=== PATIENT | male | born 1955 | race Caucasian/White ===

== ENCOUNTER → 2019-05-18 13:34 | Outpatient (BNVA) | payer MEDICARE, SELFPAY | PROVIDERS: Referring Provider Nurse Practitioner Family; Visit Provider Internal Medicine Rheumatology | DX: L40.50 Arthropathic psoriasis, unspecified (principal); Z79.899 Other long term (current) drug therapy; Z11.59 Encounter for screening for other viral diseases; M19.90 Unspecified osteoarthritis, unspecified site; R76.8 Other specified abnormal immunological findings in serum; L40.8 Other psoriasis | CPT/HCPCS: 36415; 80076; 82306; 82565; 84550; 85025; 85651; 86140; 99204 ==

== ENCOUNTER → 2019-05-18 15:01 | Outpatient (BNVA) | payer MEDICARE, SELFPAY | PROVIDERS: PCP Nurse Practitioner Family; Referring Provider Nurse Practitioner Family; Visit Provider Internal Medicine Rheumatology | DX: L40.50 Arthropathic psoriasis, unspecified (principal); M19.90 Unspecified osteoarthritis, unspecified site | CPT/HCPCS: 85025 ==

== ENCOUNTER → 2019-06-08 13:13 | Outpatient (BNVA) | payer MEDICARE, SELFPAY | PROVIDERS: PCP Nurse Practitioner Family; Visit Provider Internal Medicine Rheumatology | DX: L40.8 Other psoriasis (principal); M19.90 Unspecified osteoarthritis, unspecified site; Z79.899 Other long term (current) drug therapy; L40.50 Arthropathic psoriasis, unspecified; M19.011 Primary osteoarthritis, right shoulder; M47.896 Other spondylosis, lumbar region; M16.0 Bilateral primary osteoarthritis of hip; M85.841 Other specified disorders of bone density and structure, right hand; M85.842 Other specified disorders of bone density and structure, left hand; M19.072 Primary osteoarthritis, left ankle and foot; M19.071 Primary osteoarthritis, right ankle and foot; Z98.1 Arthrodesis status | CPT/HCPCS: 36415; 72040; 72100; 72170; 73020; 73130; 73562; 73630; 80076; 99214 ==

== ENCOUNTER 2019-06-08 14:06 | Outpatient (CLI) | payer MEDICARE, SELFPAY ==
--- NOTE | 2019-06-08 14:38 | XR_ITS ---
WS: [id number] FOOT RIGHT TECHNIQUE: 3 views of the right foot CLINICAL INFORMATION: inflammatory arthritis COMPARISON: None. FINDINGS: Osteopenia. Hammertoe deformities. Chronic small erosions involving the metatarsal heads. Hallux valg us. Degenerative narrowing involving the first PIP joint. Mild IP joint narrowing involving the PIP a nd DIP joints. Degenerative arthritis involving the tarsal bones. Tiny plantar calcaneal spur. XR/XR foot RT min 3V* [id number] IMPRESSION: 1. Small erosions involving the metatarsal heads. 2. Hallux valgus. 3. Moderate degenerative arthritis involving the midfoot tarsal bones at the T MT joint.
--- NOTE | 2019-06-08 14:38 | XR_ITS ---
WS: [id number] LUMBAR SPINE TECHNIQUE: 3 views of the lumbar spine CLINICAL INFORMATION: inflammatory arthritis COMPARISON: None. FINDINGS: Osteopenia. Mild lumbar curve. 5 nonrib-bearing lumbar vertebral bodies. Mild disc space narrowing L2 -3, L4-5, and L5-S1. Facet arthropathy lower lumbar spine. Anterior hypertrophic changes lumbar spine . IMPRESSION: 1. Mild lumbar curve. 2. Mild disc space narrowing L2-3, L4-5, and L5-S1. 3. Moderate facet arthropathy lower lumbar spine.
--- NOTE | 2019-06-08 14:38 | XR_ITS ---
WS: [id number] KNEE RIGHT TECHNIQUE: 3 views of the right knee CLINICAL INFORMATION: inflammatory arthritis COMPARISON: None. FINDINGS: Normal anatomic alignment. Mild degenerative narrowing involving the medial lateral joint compartment s. Hypertrophic changes along the joint line. Advanced narrowing at the patellofemoral articulation. Mild soft tissue edema. Osteopenia. XR/XR knee RT 3V* [id number] IMPRESSION: Mild to moderate tricompartmental arthritis
--- NOTE | 2019-06-08 14:38 | XR_ITS ---
WS: [id number] HAND RIGHT TECHNIQUE: 3 views of the right hand CLINICAL INFORMATION: inflammatory arthritis COMPARISON: None. FINDINGS: Small erosions with hypertrophic spurring involving the second and third metacarpal heads. Mild IP lance int narrowing with tiny periarticular erosions or prominent involving the PIP joints. Narrowing of th e radiocarpal joint. Degenerative arthritis at the first CMC. XR/XR hand RT min 3V* [id number] IMPRESSION: 1. Small erosions with hypertrophic spurring involving the second third metaca rpal heads. 2. Tiny periarticular erosions PIP joints
--- NOTE | 2019-06-08 14:38 | XR_ITS ---
WS: [id number] SHOULDER RIGHT TECHNIQUE: 3 views of the right shoulder CLINICAL INFORMATION: inflammatory arthritis COMPARISON: None. FINDINGS: Mild degenerative arthritis AC joint. Undersurface acromial spurring. Mild rotator cuff arthropathy. Distal clavicle is normal. Mild degenerative narrowing glenohumeral joint. Normal visualized right randy ng. XR/XR shoulder RT 1V [id number] IMPRESSION: Mild degenerative arthritis right glenohumeral joint and AC joint with undersur face acromial spurring
--- NOTE | 2019-06-08 14:38 | XR_ITS ---
WS: [id number] PELVIS TECHNIQUE: 1 view(s) of the pelvis CLINICAL INFORMATION: inflammatory arthritis COMPARISON: None. FINDINGS: Mild degenerative arthritis lower lumbar spine. Mild degenerative narrowing both hips. Pelvic phlebol iths. Normal acetabulum.Inferior and superior pubic rami are normal. Normal iliopectineal line. Sacrum is n ormal in appearance. XR/XR pelvis 1-2V* [id number] IMPRESSION: Mild degenerative arthritis lower lumbar spine and both hips. No erosive change s.
--- NOTE | 2019-06-08 14:38 | XR_ITS ---
WS: [id number] FOOT LEFT TECHNIQUE: 3 views of the left foot CLINICAL INFORMATION: inflammatory arthritis COMPARISON: None. FINDINGS: Hallux valgus. IP joint narrowing first through fifth digits. A few tiny erosions involving the metat arsal heads. IP joint narrowing involving the PIP and DIP joints. Osteopenia. Degenerative arthritis TMT joints with hypertrophic spurring. XR/XR foot LT min 3V* [id number] IMPRESSION: 1. Hallux valgus. 2. A few tiny erosions involving the metatarsal heads. 3. Degenerative arthritis more prominent at the TMT joints with hypertrophic s purring
--- NOTE | 2019-06-08 14:38 | XR_ITS ---
WS: [id number] CERVICAL SPINE TECHNIQUE: 3 views of the cervical spine CLINICAL INFORMATION: inflammatory arthritis COMPARISON: None. FINDINGS: Straightening of the normal cervical lordosis. Mild spondylitic changes. Normal C1-2 articulation. Pr ior anterior fusion C5-C6 appears solid. Normal prevertebral soft tissues. Mild facet arthropathy mid cervical spine. XR/XR cervical spine 3V* [id number] IMPRESSION: Prior solid-appearing anterior fusion C5-6.
--- NOTE | 2019-06-08 14:38 | XR_ITS ---
WS: [id number] HAND LEFT TECHNIQUE: 3 views of the left hand CLINICAL INFORMATION: inflammatory arthritis COMPARISON: None. FINDINGS: Normal metacarpals. Narrowing of the radiocarpal joint. Degenerative arthritis at the distal radial u lnar joint. Ulna positive variance. Degenerative arthritis at the first CMC and STT. Mild IP joint narrowing. Tiny periarticular erosions at the IP joints. XR/XR hand LT min 3V* [id number] IMPRESSION: 1. Suggestion of tiny periarticular erosions of the IP joints. 2. Narrowing of the radiocarpal joint with ulna positive variance
== END 2019-06-08 14:07 | disposition home or self-care (01) ==
PROVIDERS: PCP Nurse Practitioner Family; Visit Provider Internal Medicine Rheumatology
DX: L40.50 Arthropathic psoriasis, unspecified (principal); M19.011 Primary osteoarthritis, right shoulder; M47.896 Other spondylosis, lumbar region; M16.0 Bilateral primary osteoarthritis of hip; M85.841 Other specified disorders of bone density and structure, right hand; M85.842 Other specified disorders of bone density and structure, left hand; M19.072 Primary osteoarthritis, left ankle and foot; M19.071 Primary osteoarthritis, right ankle and foot; Z98.1 Arthrodesis status
CPT/HCPCS: 72040; 72100; 72170; 73020; 73130; 73562; 73630; 80076

== ENCOUNTER → 2019-09-03 13:07 | Outpatient (BNVA) | payer MEDICARE, SELFPAY | PROVIDERS: PCP Nurse Practitioner Family; Visit Provider Internal Medicine Rheumatology | DX: Z79.899 Other long term (current) drug therapy (principal) | CPT/HCPCS: 36415; 80076; 82565; 85025; 85651; 86140; 86812 ==

== ENCOUNTER → 2019-09-16 11:43 | Outpatient (BNVA) | payer MEDICARE, SELFPAY | PROVIDERS: PCP Nurse Practitioner Family; Visit Provider Internal Medicine Rheumatology | DX: M05.79 Rheumatoid arthritis with rheumatoid factor of multiple sites without organ or systems involvement (principal); Z11.59 Encounter for screening for other viral diseases; Z79.899 Other long term (current) drug therapy; Z11.1 Encounter for screening for respiratory tuberculosis; M19.90 Unspecified osteoarthritis, unspecified site; L40.9 Psoriasis, unspecified; R76.8 Other specified abnormal immunological findings in serum; Z72.89 Other problems related to lifestyle; M10.9 Gout, unspecified; R74.8 Abnormal levels of other serum enzymes | CPT/HCPCS: 36415; 86480; 86704; 86803; 87340; 99214 ==

== ENCOUNTER → 2019-11-08 10:28 | Outpatient (BNVA) | payer MEDICARE, SELFPAY | PROVIDERS: PCP Nurse Practitioner Family; Referring Provider Nurse Practitioner Family; Visit Provider Anesthesiology Pain Medicine | DX: M48.07 Spinal stenosis, lumbosacral region (principal); M47.816 Spondylosis without myelopathy or radiculopathy, lumbar region; M54.9 Dorsalgia, unspecified; M54.2 Cervicalgia; Z79.891 Long term (current) use of opiate analgesic | CPT/HCPCS: 99204 ==

== ENCOUNTER → 2019-12-16 11:37 | Outpatient (BNVA) | payer MEDICARE, SELFPAY | PROVIDERS: PCP Nurse Practitioner Family; Visit Provider Internal Medicine Rheumatology | DX: M05.79 Rheumatoid arthritis with rheumatoid factor of multiple sites without organ or systems involvement (principal); Z79.899 Other long term (current) drug therapy; L40.9 Psoriasis, unspecified; R76.8 Other specified abnormal immunological findings in serum; M10.9 Gout, unspecified; R74.0 Nonspecific elevation of levels of transaminase and lactic acid dehydrogenase [LDH]; Z79.52 Long term (current) use of systemic steroids | CPT/HCPCS: 36415; 80076; 82565; 85025; 85651; 86140; 99214 ==

== ENCOUNTER → 2020-01-26 11:57 | Outpatient (BNVA) | payer MEDICARE, SELFPAY | PROVIDERS: PCP Nurse Practitioner Family; Visit Provider Internal Medicine Rheumatology | DX: M05.79 Rheumatoid arthritis with rheumatoid factor of multiple sites without organ or systems involvement (principal); L40.9 Psoriasis, unspecified; M10.9 Gout, unspecified; Z79.899 Other long term (current) drug therapy; R76.8 Other specified abnormal immunological findings in serum; R74.01 Elevation of levels of liver transaminase levels; Z79.52 Long term (current) use of systemic steroids | CPT/HCPCS: 99214 ==

== ENCOUNTER → 2020-01-26 15:22 | Outpatient (BNVA) | payer MEDICARE, SELFPAY | PROVIDERS: PCP Nurse Practitioner Family; Referring Provider Nurse Practitioner Family; Visit Provider Dermatology | DX: L30.9 Dermatitis, unspecified (principal) | CPT/HCPCS: 87220 ==

== ENCOUNTER → 2020-05-02 13:59 | Outpatient (BNVA) | payer MEDICARE, SELFPAY | PROVIDERS: PCP Nurse Practitioner Family; Visit Provider Internal Medicine Rheumatology | DX: M05.79 Rheumatoid arthritis with rheumatoid factor of multiple sites without organ or systems involvement (principal); L40.9 Psoriasis, unspecified; M19.90 Unspecified osteoarthritis, unspecified site; Z79.899 Other long term (current) drug therapy; M10.9 Gout, unspecified; R76.8 Other specified abnormal immunological findings in serum; R74.01 Elevation of levels of liver transaminase levels | CPT/HCPCS: 36415; 80076; 82565; 84550; 85025; 85651; 86140; 99214 ==

== ENCOUNTER → 2020-08-23 13:57 | Outpatient (BNVA) | payer MEDICARE, SELFPAY | PROVIDERS: PCP Nurse Practitioner Family; Visit Provider Internal Medicine Rheumatology | DX: M05.79 Rheumatoid arthritis with rheumatoid factor of multiple sites without organ or systems involvement (principal); Z79.899 Other long term (current) drug therapy; M10.9 Gout, unspecified; R74.01 Elevation of levels of liver transaminase levels; Z11.52 Encounter for screening for COVID-19; R06.02 Shortness of breath; J44.9 Chronic obstructive pulmonary disease, unspecified | CPT/HCPCS: 99214 ==

== ENCOUNTER → 2020-09-08 10:27 | Outpatient (BNVA) | payer MEDICARE, SELFPAY | PROVIDERS: PCP Nurse Practitioner Family; Visit Provider Internal Medicine Rheumatology | DX: Z20.822 Contact with and (suspected) exposure to COVID-19 (principal) | CPT/HCPCS: 87635 ==

== ENCOUNTER 2020-09-12 14:02 | Outpatient (CLI) | payer MEDICARE, SELFPAY ==
--- NOTE | 2020-09-12 14:26 | PFTS_ITS ---
Date of Study:09/12/20 Date of Dictation: 09/19/20 MECHANICS: Post bronchodilator Forced vital capacity (FVC) is reduced 67% . Post bronchodilator Forced expiratory volume in one second (FEV1) is moderately reduced 64% . FEV1/FVC is reduced. There is no significant response to bronchodilators . FLOW VOLUME LOOP:sloping of end expiratory limb suggestive of small airway obstruction . LUNG VOLUMES: Total lung capacity (TLC) is normal .Residual volume (RV) increased suggestive of mild air trapping. DIFFUSING CAPACITY FOR CARBON MONOXIDE: Normal . INTERPRETATION: The pulmonary function tests are consistent with moderate obstructive ventilatory defect with mild air trapping on lung volumes and normal gas transfer. Clinical correlation recommended. [facility]
== END 2020-09-12 14:03 | disposition home or self-care (01) ==
LOC: RT 14:11
PROVIDERS: PCP Nurse Practitioner Family; Visit Provider Internal Medicine Rheumatology
DX: M05.79 Rheumatoid arthritis with rheumatoid factor of multiple sites without organ or systems involvement (principal); J44.9 Chronic obstructive pulmonary disease, unspecified; R06.02 Shortness of breath
CPT/HCPCS: 94060; 94726; 94729; J7611

== ENCOUNTER → 2020-12-20 11:39 | Outpatient (BNVA) | payer MEDICARE, SELFPAY | PROVIDERS: PCP Nurse Practitioner Family; Visit Provider Internal Medicine Critical Care Medicine | DX: R06.02 Shortness of breath (principal); J45.909 Unspecified asthma, uncomplicated; J45.50 Severe persistent asthma, uncomplicated | CPT/HCPCS: 71046; 82785; 86003 ==

== ENCOUNTER → 2021-02-14 15:16 | Outpatient (BNVA) | payer MEDICARE, SELFPAY | PROVIDERS: PCP Nurse Practitioner Family; Visit Provider Internal Medicine Rheumatology | DX: M05.79 Rheumatoid arthritis with rheumatoid factor of multiple sites without organ or systems involvement (principal); L40.9 Psoriasis, unspecified; Z79.899 Other long term (current) drug therapy; M10.9 Gout, unspecified; R76.8 Other specified abnormal immunological findings in serum; R74.01 Elevation of levels of liver transaminase levels; J44.9 Chronic obstructive pulmonary disease, unspecified; Z87.891 Personal history of nicotine dependence | CPT/HCPCS: 99214 ==

== ENCOUNTER → 2021-06-06 10:45 | Outpatient (BNVA) | payer MEDICARE, SELFPAY | PROVIDERS: PCP Nurse Practitioner Family; Visit Provider Internal Medicine Rheumatology | DX: M05.79 Rheumatoid arthritis with rheumatoid factor of multiple sites without organ or systems involvement (principal); Z79.899 Other long term (current) drug therapy; L40.9 Psoriasis, unspecified; R76.8 Other specified abnormal immunological findings in serum; M10.9 Gout, unspecified; R74.01 Elevation of levels of liver transaminase levels; Z71.89 Other specified counseling | CPT/HCPCS: 99214 ==

== ENCOUNTER → 2021-12-12 15:01 | Outpatient (BNVA) | payer MEDICARE, SELFPAY | PROVIDERS: PCP Nurse Practitioner Family; Visit Provider Internal Medicine Rheumatology | DX: M05.79 Rheumatoid arthritis with rheumatoid factor of multiple sites without organ or systems involvement (principal); Z79.899 Other long term (current) drug therapy | CPT/HCPCS: 80076; 82565; 85025; 86140 ==

== ENCOUNTER → 2021-12-13 11:47 | Outpatient (BNVA) | payer MEDICARE, SELFPAY | PROVIDERS: PCP Nurse Practitioner Family; Visit Provider Internal Medicine Rheumatology | DX: M05.79 Rheumatoid arthritis with rheumatoid factor of multiple sites without organ or systems involvement (principal); Z79.899 Other long term (current) drug therapy; L40.9 Psoriasis, unspecified; M10.9 Gout, unspecified; J44.9 Chronic obstructive pulmonary disease, unspecified; R74.01 Elevation of levels of liver transaminase levels; Z87.891 Personal history of nicotine dependence | CPT/HCPCS: 99214 ==

== ENCOUNTER → 2022-03-14 11:47 | Outpatient (BNVA) | payer MEDICARE, SELFPAY | PROVIDERS: PCP Nurse Practitioner Family; Visit Provider Internal Medicine Rheumatology | DX: M05.79 Rheumatoid arthritis with rheumatoid factor of multiple sites without organ or systems involvement (principal); Z79.899 Other long term (current) drug therapy; L40.9 Psoriasis, unspecified; M10.9 Gout, unspecified; R74.01 Elevation of levels of liver transaminase levels; J44.9 Chronic obstructive pulmonary disease, unspecified; Z87.891 Personal history of nicotine dependence | CPT/HCPCS: 99214 ==

== ENCOUNTER → 2022-09-12 13:12 | Outpatient (BNVA) | payer MEDICARE, SELFPAY | PROVIDERS: PCP Nurse Practitioner Family; Visit Provider Internal Medicine Rheumatology | DX: M05.79 Rheumatoid arthritis with rheumatoid factor of multiple sites without organ or systems involvement (principal); Z79.899 Other long term (current) drug therapy; L40.9 Psoriasis, unspecified; M10.9 Gout, unspecified | CPT/HCPCS: 80076; 82565; 85025; 86140 ==

== ENCOUNTER → 2022-12-18 09:55 | Outpatient (BNVA) | payer MEDICARE, SELFPAY | PROVIDERS: PCP Nurse Practitioner Family; Referring Provider Internal Medicine Rheumatology; Visit Provider Internal Medicine Rheumatology | DX: Z79.899 Other long term (current) drug therapy (principal); M05.79 Rheumatoid arthritis with rheumatoid factor of multiple sites without organ or systems involvement; Z11.1 Encounter for screening for respiratory tuberculosis; R76.8 Other specified abnormal immunological findings in serum; M19.90 Unspecified osteoarthritis, unspecified site | CPT/HCPCS: 80076; 82565; 85025; 86140; 86480 ==

== ENCOUNTER → 2023-01-01 13:22 | Outpatient (BNVA) | payer OTHER, SELFPAY | PROVIDERS: PCP Nurse Practitioner Family; Visit Provider Dermatology | DX: B35.4 Tinea corporis (principal); L40.59 Other psoriatic arthropathy | CPT/HCPCS: 99214 ==

== ENCOUNTER → 2023-03-11 15:15 | Outpatient (BNVA) | payer OTHER, SELFPAY | PROVIDERS: PCP Nurse Practitioner Family; Visit Provider Dermatology | DX: B35.4 Tinea corporis (principal); L57.8 Other skin changes due to chronic exposure to nonionizing radiation; D69.2 Other nonthrombocytopenic purpura | CPT/HCPCS: 99213 ==